=== PATIENT | female | born 1980 | race Caucasian/White ===

== ENCOUNTER 2017-04-25 18:54 | Emergency (ER) | payer OTHER ==
[~2017-04-25] VITALS: Ht 162.6 cm; Wt 99.8 kg
[2017-04-25 18:55] VITALS: BP 140/99
[2017-04-25] MEDS ORDERED: METFORMIN HCL500 MG PO (18:59)
[2017-04-25] MEDS ORDERED: MOBIC7.5 MG PO (19:58)
== END 2017-04-25 20:22 | disposition home or self-care (01) ==
LOC: ER 18:54
DX: S80.01XA Contusion of right knee, initial encounter (principal); M17.11 Unilateral primary osteoarthritis, right knee; E11.9 Type 2 diabetes mellitus without complications; J45.909 Unspecified asthma, uncomplicated; V89.2XXA Person injured in unspecified motor-vehicle accident, traffic, initial encounter; Y93.I9 Activity, other involving external motion; Y92.89 Other specified places as the place of occurrence of the external cause; Y99.8 Other external cause status